=== PATIENT | female | born 1960 | race Caucasian/White ===

== ENCOUNTER 2017-08-05 19:18 | Emergency (ER) | payer OTHER ==
[~2017-08-05] VITALS: Ht 147.3 cm; Wt 86.0 kg
[~2017-08-05 19:18] MED LIST: LEVO75TA42 PO; [UNRECOGNIZED DRUG - CODE] PO
[2017-08-05 19:46] VITALS: BP 162/78; PULSE 65; RESP 16; TEMP 98.2; O2SAT 100
[2017-08-05] MEDS ORDERED: LEVO75TA3 PO (20:02)
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
== END 2017-08-05 21:45 | disposition left against medical advice (07) ==
LOC: PHEFT 19:18
DX: Z04.1 Encounter for examination and observation following transport accident (principal)
CPT/HCPCS: 99281